=== PATIENT | female | born 1940 | race Caucasian/White ===

== ENCOUNTER → 2024-01-21 10:31 | Outpatient (REF) | payer OTHER, SELFPAY | LOC: HWRAD 10:31 | PROVIDERS: ATTENDING PHYSICIAN Internal Medicine Hematology & Oncology; FAMILY PHYSICIAN Internal Medicine | DX: R63.4 Abnormal weight loss (principal); G89.29 Other chronic pain; C90.00 Multiple myeloma not having achieved remission | CPT/HCPCS: 71260; 74177; Q9967 ==